=== PATIENT | male | born 1975 | race African-American/Black ===

== ENCOUNTER 2017-10-03 12:55 | Emergency (ER) | payer BC ==
[~2017-10-03] VITALS: Ht 175.3 cm; Wt 90.0 kg
[~2017-10-03 12:55] MED LIST: CALCIUM CHLORIDE 1GM/10ML SYR IV ONE; EPINEPHRINE 0.1MG/ML (1:10,000) 10ML SYR ONE; SODIUM BICARBONATE 7.5% 0.9 MEQ/ML 50ML SYR IV ONE
[2017-10-03 12:58] VITALS: BP 0/0
== END 2017-10-03 13:24 | disposition expired ==
LOC: ER 13:01
DX: I46.9 Cardiac arrest, cause unspecified (principal); J45.909 Unspecified asthma, uncomplicated
CPT/HCPCS: 31500; 32551; 82962; 92950; 99291; J0171; J3490